=== PATIENT | female | born 1930 | race Caucasian/White ===

== ENCOUNTER → 2016-10-30 | Outpatient (REF) | payer MEDICARE, MEDICAID | LOC: M LAB REF 19:02 | PROVIDERS: ATTEND Physician Assistant Medical | DX: J02.9 Acute pharyngitis, unspecified (principal) ==

== ENCOUNTER → 2018-01-19 | Outpatient (CLI) | payer MEDICARE, MEDICAID | LOC: M ADAMS 08:54 | DX: M54.5 Low back pain (principal) | CPT/HCPCS: 72050 ==